=== PATIENT | male | born 1990 | race Caucasian/White ===

== ENCOUNTER 2025-04-30 20:38 | Inpatient (IN) | payer SELFPAY ==
[~2025-04-30] VITALS: Ht 177.8 cm; Wt 99.8 kg
[2025-04-30 21:07] VITALS: PULSE 80; RESP 18; TEMP 98.7
[2025-04-30 21:08] LABS: BASOPHILS # (AUTO) 0.1 (0.0-0.1); BASOPHILS % 0.4 % (0.0-1.0); EOSINOPHILS # (AUTO) 0.8 (0.0-0.4); EOSINOPHILS % 7.1 % (0.0-6.0); HEMOGLOBIN 14.7 g/dL (14.0-18.0); LYMPHOCYTES # (AUTO) 2.4 (1.0-3.2); LYMPHOCYTES % 21.3 % (18.0-39.1); MEAN CORPUSCULAR HEMOGLOBIN 29.8 pg (28-32); MEAN CORPUSCULAR VOLUME 85.2 fL (81-99); MONOCYTES % 8.6 % (4.4-11.3); NEUTROPHILS # (AUTO) 7.1 (2.1-6.9); NEUTROPHILS % 62.4 % (38.7-80.0); PLATELET COUNT 243 x10e3/uL (140-360); RED BLOOD COUNT 4.93 x10e6/uL (4.3-5.7); RED CELL DISTRIBUTION WIDTH 13.5 % (11.7-14.4); WHITE BLOOD COUNT 11.33 x10e3/uL (4.8-10.8)
[2025-04-30 21:35] LABS: ALBUMIN 3.9 g/dL (3.5-5.0); ALBUMIN/GLOBULIN RATIO 1.2 (0.8-2.0); ANION GAP 13.7 mmol/L (8-16); BILIRUBIN,TOTAL 0.6 mg/dL (0.2-1.2); CREATININE, SERUM 0.86 mg/dL (0.72-1.25); POTASSIUM 3.7 mmol/L (3.5-5.1); TOTAL PROTEIN 7.2 g/dL (6.5-8.1)
[2025-04-30] MEDS ORDERED: ACETAMINOPHEN 325 MG TAB PO PRN (21:45)
[2025-04-30] MEDS: SODIUM CHLORIDE 0.9% 1000ML 1,000 ML IV ONE (22:28)
[2025-04-30] MEDS: Vancomycin IV 1.25 GM in SODIUM CHLORIDE 0.9% 250ML 250 ML IV SCH (22:28)
[2025-04-30] MEDS ORDERED: SODIUM CHLORIDE 0.9% 250ML 250 ML ONE (22:35)
[2025-04-30] MEDS: Morphine 4mg INJECTION 4 MG/ML INJ IV PRN (23:14)
[2025-04-30 23:15] VITALS: BP 126/88; PULSE 77; RESP 17; TEMP 98.9; O2SAT 99
[2025-04-30] MEDS ORDERED: POLYETHYLENE GLYCOL 3350 17 GM PACK PO PRN (23:15)
[2025-04-30] MEDS ORDERED: HYDRALAZINE HCL 20 MG/ML VIAL IV PRN (23:15)
[2025-04-30] MEDS: ONDANSETRON HCL INJ 2MG/ML 2ML 2 MG/ML VIAL IV PRN (23:15)
[2025-04-30 23:21] VITALS: PULSE 81; RESP 16; O2SAT 98
[2025-05-01] VITALS (14 sets, daily range): BP systolic 109–130; BP diastolic 72–84; PULSE 67–81; RESP 16–22; TEMP 98.2–98.4; O2SAT 97–100
[2025-05-01 06:22] LABS: BASOPHILS % 0.4 % (0.0-1.0); EOSINOPHILS # (AUTO) 0.7 (0.0-0.4); EOSINOPHILS % 6.5 % (0.0-6.0); HEMATOCRIT 39.5 % (38.2-49.6); HEMOGLOBIN 13.4 g/dL (14.0-18.0); LYMPHOCYTES # (AUTO) 1.7 (1.0-3.2); LYMPHOCYTES % 16.2 % (18.0-39.1); MEAN CORPUSCULAR HEMOGLOBIN 29.6 pg (28-32); MEAN CORPUSCULAR HGB CONC 33.9 g/dL (31-35); MEAN CORPUSCULAR VOLUME 87.2 fL (81-99); MONOCYTES # (AUTO) 1.1 (0.2-0.8); MONOCYTES % 10.4 % (4.4-11.3); NEUTROPHILS # (AUTO) 7.1 (2.1-6.9); NEUTROPHILS % 66.1 % (38.7-80.0); PLATELET COUNT 225 x10e3/uL (140-360); RED BLOOD COUNT 4.53 x10e6/uL (4.3-5.7); RED CELL DISTRIBUTION WIDTH 13.6 % (11.7-14.4); WHITE BLOOD COUNT 10.74 x10e3/uL (4.8-10.8)
[2025-05-01 06:42] LABS: MAGNESIUM 1.8 MG/DL (1.3-2.1); PHOSPHORUS 3.1 MG/DL (2.3-4.7)
[2025-05-01 06:44] LABS: ALBUMIN 3.2 g/dL (3.5-5.0); ANION GAP 9.7 mmol/L (8-16); BILIRUBIN,TOTAL 0.8 mg/dL (0.2-1.2); CALCIUM 8.1 mg/dL (8.4-10.2); CREATININE, SERUM 0.82 mg/dL (0.72-1.25); POTASSIUM 3.7 mmol/L (3.5-5.1); TOTAL PROTEIN 6.3 g/dL (6.5-8.1)
[2025-05-01] MEDS: DOCUSATE SODIUM 100 MG CAP PO SCH (09:02)
[2025-05-01] MEDS: CALCIUM CARBONATE/VITAMIN D3 500 MG TAB PO SCH (17:28)
[2025-05-01] MEDS: ZINC SULFATE 50 MG CAP PO SCH (17:28)
[2025-05-01] MEDS: ASCORBIC ACID 500 MG TAB PO SCH (17:28)
[2025-05-01] MEDS: MULTIVITAMINS/MINERALS TAB PO SCH (17:28)
[2025-05-01] MEDS: MAGNESIUM OXIDE 400 MG TAB PO SCH (17:28)
[2025-05-01] MEDS: VANCOMYCIN 1.5 GM/300 ML (PEG) 300 ML IV SCH (22:56)
[2025-05-01] MEDS ORDERED: IOPAMIDOL 370 MG/ML 100 ML INFUS..BTL INJ ONE (23:47)
[2025-05-02] VITALS (9 sets, daily range): BP systolic 97–124; BP diastolic 57–82; PULSE 60–76; RESP 16–20; TEMP 97.5–98.7; O2SAT 99–100
[2025-05-02 06:24] LABS: BASOPHILS % 0.4 % (0.0-1.0); EOSINOPHILS # (AUTO) 0.5 (0.0-0.4); EOSINOPHILS % 5.5 % (0.0-6.0); HEMATOCRIT 39.7 % (38.2-49.6); HEMOGLOBIN 13.8 g/dL (14.0-18.0); LYMPHOCYTES # (AUTO) 1.5 (1.0-3.2); LYMPHOCYTES % 15.2 % (18.0-39.1); MEAN CORPUSCULAR HEMOGLOBIN 29.7 pg (28-32); MEAN CORPUSCULAR HGB CONC 34.8 g/dL (31-35); MEAN CORPUSCULAR VOLUME 85.4 fL (81-99); NEUTROPHILS # (AUTO) 6.6 (2.1-6.9); NEUTROPHILS % 68.7 % (38.7-80.0); PLATELET COUNT 239 x10e3/uL (140-360); RED BLOOD COUNT 4.65 x10e6/uL (4.3-5.7); RED CELL DISTRIBUTION WIDTH 13.2 % (11.7-14.4); WHITE BLOOD COUNT 9.66 x10e3/uL (4.8-10.8)
[2025-05-02 06:59] LABS: ANION GAP 13.6 mmol/L (8-16); CALCIUM 8.6 mg/dL (8.4-10.2); CREATININE, SERUM 0.77 mg/dL (0.72-1.25); POTASSIUM 3.6 mmol/L (3.5-5.1)
[2025-05-02] MEDS: HYDROCODONE/APAP 5MG-325MG TAB PO PRN (18:12)
[2025-05-03 00:01] VITALS: BP 114/78; PULSE 58; RESP 20; TEMP 97.8; O2SAT 99
[2025-05-03 04:43] VITALS: BP 106/70; PULSE 64; RESP 16; TEMP 98; O2SAT 100
[2025-05-03 07:13] VITALS: BP 119/78; PULSE 65; RESP 16; TEMP 98.2; O2SAT 96
[2025-05-03 09:12] VITALS: PULSE 66; RESP 16; O2SAT 99
[2025-05-03 11:00] VITALS: BP 129/77; RESP 16; TEMP 97.8; O2SAT 99
[2025-05-03] MEDS ORDERED: MAG-OXIDE400 MG PO (12:06)
[2025-05-03] MEDS ORDERED: ASCORBIC ACID500 MG PO (12:06)
[2025-05-03] MEDS ORDERED: MULTIVITAMINS1 EAC6 PO (12:06)
[2025-05-03] MEDS ORDERED: OYSTER SHELL 51 EAC1 PO (12:06)
[2025-05-03] MEDS ORDERED: ACETAMINOPHEN325 M1 PO (12:06)
[2025-05-03] MEDS ORDERED: KEFLEX125 MG/5 M PO ×2 (12:06→12:33)
[2025-05-03] MEDS ORDERED: ZINC-22050 MG PO (12:06)
[2025-05-03] MEDS ORDERED: ONDANSETRON ODT4 MG PO (12:06)
[2025-05-03] MEDS: CEFAZOLIN SODIUM 2 GM in SODIUM CHLORIDE 0.9% 100 ML IV SCH (12:10)
[2025-05-03 12:25] VITALS: BP 129/77; PULSE 66; RESP 16; TEMP 97.8; O2SAT 99
== END 2025-05-03 13:25 | disposition home or self-care (01) | DRG 603 ==
LOC: ER 20:57 → ERHOLD 21:39 → ICU 23:00
PROVIDERS: ADMIT Internal Medicine; ATTEND Internal Medicine
DX: L03.113 Cellulitis of right upper limb (principal); E87.1 Hypo-osmolality and hyponatremia; L02.413 Cutaneous abscess of right upper limb; B95.61 Methicillin susceptible Staphylococcus aureus infection as the cause of diseases classified elsewhere; F41.0 Panic disorder [episodic paroxysmal anxiety]; F17.290 Nicotine dependence, other tobacco product, uncomplicated
CPT/HCPCS: 36415; 73201; 80048; 80053; 80202; 83735; 84100; 85025; 87040; 87071; 87186; 87205; 94799; 99284; J2270; J2405; J2543; J7030; J7050; Q9967